=== PATIENT | male | born 1995 | race Caucasian/White ===

== ENCOUNTER 2022-09-17 18:26 | Observation (INO) ==
[2022-09-17] MEDS ORDERED: LORazepam 2 mg VIAL 1 ml ONE (19:13)
[2022-09-17] MEDS ORDERED: LORazepam 2 mg VIAL 1 ml IV PUSH ONE (19:15)
[2022-09-17 19:19] LABS: ABS Basophils 0.1 10^3/ul (0-0.2); ABS Eosinophils 0.2 10^3/ul (0-0.6); ABS Lymphocytes 2.8 10^3/ul (1.0-4.8); ABS Monocytes 0.9 10^3/ul (0-0.8); ABS Neutrophils 6.3 10^3/ul (1.5-7.7); Eosinophil % 1.8 %; Hematocrit 45 % (42-52); Hemoglobin 15.5 g/dL (14.0-18.0); Lymphocyte % 27.4 %; Mean Corpuscular HGB Conc 35 g/dL (31-36); Mean Corpuscular Hemoglobin 29 pg (27-31); Mean Corpuscular Volume 83 fL (80-94); Mean Platelet Volume 8.5 fL (7.4-10.4); Platelet Count 275 10^3/uL (150-450); Red Cell Distribution Width 14 % (10-15); White Blood Count 10.2 10^3/uL (3.5-10.8)
[2022-09-17 19:29] LABS: INR 1.23 (0.88-1.18)
[2022-09-17 19:36] LABS: ALT 28 U/L (7-52); Albumin 4.4 g/dL (3.2-5.2); Albumin/Globulin Ratio 1.6 (1-3); Alkaline Phosphatase 54 U/L (35-149); Blood Urea Nitrogen 20 mg/dL (6-24); CO2 Carbon Dioxide 22 mmol/L (22-32); Calcium 9.3 mg/dL (8.6-10.3); Chloride 102 mmol/L (101-111); Cholesterol 270 mg/dL; Creatinine, Serum 0.87 mg/dL (0.67-1.17); Globulin 2.8 g/dL (2-4); Glucose 92 mg/dL (70-100); HDL Cholesterol 32.3 mg/dL; LDL Cholesterol 183 mg/dL; Sodium 131 mmol/L (135-145); Total Protein 7.2 g/dL (6.4-8.9); Triglycerides 273 mg/dL; eGFR CKD-EPI 120.5 (>60)
[2022-09-17 19:44] LABS: Anion Gap 7 mmol/L (2-11)
[2022-09-17 20:48] LABS: Potassium Redraw 4.1 mmol/L (3.5-5.0)
[2022-09-17 21:39] LABS: TSH Ultra Thyroid Stim Horm 1.97 mcIU/mL (0.34-5.60)
[2022-09-17 21:43] LABS: Magnesium 2.1 mg/dL (1.9-2.7)
[2022-09-17 21:50] LABS: Folate > 20.00 ng/mL (5.90-24.80)
[2022-09-17 21:51] LABS: Vitamin B12 765 pg/mL (180-914)
[2022-09-17 22:36] LABS: Urine Appearance Clear; Urine Bilirubin Negative (Negative); Urine Blood Negative (Negative); Urine Color Yellow; Urine Glucose 3+(>=500 mg/dL) (Negative); Urine Ketones Negative (Negative); Urine Nitrite Negative (Negative); Urine Protein Negative (Negative); Urine Urobilinogen Negative (Negative)
[2022-09-17 23:32] LABS: Urine Specific Gravity > 1.060 (1.002-1.030)
[2022-09-18 06:26] LABS: ABS Basophils 0.1 10^3/ul (0-0.2); ABS Eosinophils 0.3 10^3/ul (0-0.6); ABS Lymphocytes 3.2 10^3/ul (1.0-4.8); ABS Monocytes 0.9 10^3/ul (0-0.8); ABS Neutrophils 4.7 10^3/ul (1.5-7.7); Eosinophil % 2.8 %; Hematocrit 43 % (42-52); Hemoglobin 14.6 g/dL (14.0-18.0); Lymphocyte % 34.7 %; Mean Corpuscular HGB Conc 34 g/dL (31-36); Mean Corpuscular Hemoglobin 28 pg (27-31); Mean Corpuscular Volume 84 fL (80-94); Mean Platelet Volume 8.3 fL (7.4-10.4); Nucleated Red Blood Cells % 0.1; Platelet Count 251 10^3/uL (150-450); Red Blood Count 5.14 10^6 /uL (4.18-5.48); Red Cell Distribution Width 14 % (10-15); White Blood Count 9.2 10^3/uL (3.5-10.8)
[2022-09-18 07:01] LABS: Calcium 9.3 mg/dL (8.6-10.3); Creatinine, Serum 0.92 mg/dL (0.67-1.17); Potassium 4.2 mmol/L (3.5-5.0); eGFR CKD-EPI 116.2 (>60)
[2022-09-18] MEDS ORDERED: Sacubitril/Valsartan 97/103(NF) PO SCH (09:00)
[2022-09-18] MEDS ORDERED: Sulfur Hexaflouride MICROSPHR 25 MG VIAL ONE (12:51)
[2022-09-18 16:17] VITALS: BP 101/55
== END 2022-09-18 16:50 | disposition home or self-care (01) ==
LOC: EDHOLD 18:26 → ED 18:26 → SUATTDRO 20:34 → EDHOLD 09-18 07:27 → MEDTELE 09-18 10:11
PROVIDERS: ADMIT Hospitalist; ATTEND Internal Medicine Hematology & Oncology